=== PATIENT | female | born 1930 | race Caucasian/White ===

== ENCOUNTER 2017-07-06 18:27 | Inpatient (IN) | payer MEDICARE, MEDICAID ==
[~2017-07-06] VITALS: Ht 154.9 cm; Wt 41.5 kg
--- NOTE | ~2017-07-06 | PROC ---
[address] [address] PROCEDURE REPORT Name: ROBBIN FRNECH Room: [address] IN .R.#: [id number] Admission: 07/06/17 Attend Phys: Hunter Grimm MD Discharge: 07/11/17 Date of : 32 Report #: [id number] THIS REPORT FOR: //name// For additional GI report details, please see the Provation report in Perceptive 7 content. By: 1325Medical Records Staff MITRA /ANIA
[~2017-07-06 18:27] MED LIST: ATIVAN0.5 M1 PO; AUGMENTIN 875875 MG PO; CENTRUM COMPLE1 EACH PO; CIPRO250 M1 PO; CIPRO500 MG PO; COLACE100 MG PO; DARVOCET-N 1001 EACH PO; FOSAMAX 70 MG T70 M1 PO; FOSAMAX 70 MG T70 MG PO; HYDROCODONE-AP1 EAC6 PO; IBUPROFEN 600600 M1 PO; KEFLEX500 MG PO; MILK OF MA2400 MG/10 PO; MYRBETRIQ50 MG PO; NAMENDA XR28 MG PO; REMERON15 MG PO; SEROQUEL 25 MG25 M1 PO; SIMVASTATIN40 MG PO; SPIRIVA INH; TRAZODONE HCL50 MG PO; TWOCAL HN LIQU237 ML PO; ZOCOR20 MG PO; ZOLOFT25 MG PO
[2017-07-06 18:30] VITALS: BP 145/79
[2017-07-06] MEDS ORDERED: BISACODYL SUPP10 MG RECTAL (18:35)
[2017-07-06] MEDS ORDERED: ATIVAN0.5 MG PO (18:35)
[2017-07-06] MEDS ORDERED: SENEXON-S TABL1 EACH PO (18:36)
[2017-07-06] MEDS ORDERED: HYDROCODONE-AP1 EAC6 PO (18:36)
[2017-07-06] MEDS ORDERED: ZOLOFT25 MG PO (18:37)
[2017-07-06 18:57] LABS: ABSOLUTE EOSINOPHILS 0.2 thou/uL (0.0-0.7); ABSOLUTE LYMPHOCYTES 2.1 thou/uL (0.8-5.3); ABSOLUTE NEUTROPHILS 6.7 thou/uL (1.6-8.1); BASOPHILS 0.4 %; EOSINOPHILS 1.9 %; HEMATOCRIT 37.1 % (37.0-47.0); HEMOGLOBIN 11.8 gm/dL (12.0-15.0); LYMPHOCYTES 20.6 %; MCH 25.2 pg (26.0-34.0); MCHC 31.9 g/dL (28.0-37.0); MCV 78.9 fL (80.0-100.0); MONOCYTES 10.4 %; MPV 7.8 fl. (7.2-11.1); NUCLEATED RBCS 0 /100WBC; PLATELET COUNT* 400 thou/uL (150-400); POLYS 66.7 %; RDW-CV 17.6 % (10.5-14.5); WBC 10.1 thou/uL (4.0-11.0)
[2017-07-06 19:04] LABS: INFLUENZA A ANTIGEN None Detected (None Detect); INFLUENZA B ANTIGEN None Detected (None Detect)
[2017-07-06 19:05] LABS: ANION GAP 8 mmol/L (7-16); BUN 46 mg/dL (7-18); CALCIUM 9.4 mg/dL (8.5-10.1); CHLORIDE 109 mmol/L (98-107); CO2 30 mmol/L (21-32); GLUCOSE 91 mg/dL (70-99); POTASSIUM 3.7 mmol/L (3.5-5.1); SODIUM 147 mmol/L (136-145)
[2017-07-06 19:06] LABS: APTT 24.5 Seconds (25.0-31.3); INR 1.1; PROTIME 10.6 Seconds (9.20-11.50)
[2017-07-06 19:15] LABS: ALBUMIN 2.8 g/dL (3.4-5.0); ALKALINE PHOSPHATASE 119 U/L (46-116); LIPASE 392 U/L (73-393); MAGNESIUM 2.5 mg/dL (1.8-2.4); NT-PRO BRAIN NAT PEPTIDE 132 pg/mL (<300); SGOT 30 U/L (15-37); SGPT 30 U/L (30-65); TOTAL BILIRUBIN 0.3 mg/dL (<0.1-1.0); TOTAL PROTEIN 7.8 g/dL (6.4-8.2); TROPONIN-I LEVEL <0.06 ng/mL (<0.06)
[2017-07-06 20:47] VITALS: BP 121/75
[2017-07-06 23:32] VITALS: BP 121/61
[2017-07-07 04:45] LABS: HEMOGLOBIN 10.5 gm/dL (12.0-15.0); MCH 24.8 pg (26.0-34.0); MCHC 31.8 g/dL (28.0-37.0); MCV 77.8 fL (80.0-100.0); MPV 8.4 fl. (7.2-11.1); NUCLEATED RBCS 0 /100WBC; PLATELET COUNT* 341 thou/uL (150-400); RBC 4.25 mil/uL (4.20-5.00); RDW-CV 17.3 % (10.5-14.5); WBC 6.5 thou/uL (4.0-11.0)
[2017-07-07 05:00] LABS: CALCIUM 8.4 mg/dL (8.5-10.1); POTASSIUM 3.9 mmol/L (3.5-5.1)
[2017-07-07 06:59] LABS: ABSOLUTE LYMPHOCYTES 0.4 thou/uL (0.8-5.3); ABSOLUTE MONOCYTES 0.1 thou/uL (0.0-1.2)
[2017-07-07 07:00] LABS: ANISOCYTOSIS 1+; HYPOCHROMASIA 1+; PLATELET ESTIMATE ADEQUATE
[2017-07-07 10:17] VITALS: BP 153/91
--- NOTE | 2017-07-07 11:47 | EKG ---
[place] [address] ELECTROCARDIOGRAM REPORT Name: YUMIKOTOÑAROBBIN Room: [address]R.#: [id number] Admission: 07/06/17 Attend Phys: Hunter Grimm MD Discharge: Date of : 32 Report #: [id number] THIS REPORT FOR: //name// [facility] ED Test Date: 2017-07-06 Test Time: 19:26:05 Pat Name: ROBBIN FRENCH Department: Room: [facility] Gender: F Ferris Wheel Operator: BD : 1930 Requested By: Reinaldo Brown Order Number: [id number] MD: West Márquez Measurements Intervals [place] Rate: 85 P: 60 AR: 142 QRS: 8 QRSD: 96 T: 60 QT: 370 QTc: 440 Interpretive Statements Sinus rhythm Inferior infarct, old Baseline wander in lead(s) II,III,aVL,aVF,V1,V4,V5,V6 Compared to ECG 05/15/2016 14:11:28 Myocardial infarct finding now present Ventricular premature complex(es) no longer present Electronically Signed On 07-07-2017 11:47:26 MANAGER STATE by West Márquez [email or web address] <ELECTRONICALLY SIGNED> By: West Márquez MD, FACC 07/07/17 1147 25 25 West Márquez MD, FAC /EPI
[2017-07-07 16:45] VITALS: BP 138/43
[2017-07-07 19:30] VITALS: BP 132/55
[2017-07-08 04:39] LABS: ABSOLUTE LYMPHOCYTES 1.7 thou/uL (0.8-5.3); ABSOLUTE MONOCYTES 0.9 thou/uL (0.0-1.2); ABSOLUTE NEUTROPHILS 8.1 thou/uL (1.6-8.1); BASOPHILS 0.3 %; EOSINOPHILS 0.1 %; HEMATOCRIT 28.7 % (37.0-47.0); HEMOGLOBIN 9.3 gm/dL (12.0-15.0); LYMPHOCYTES 15.9 %; MCHC 32.5 g/dL (28.0-37.0); MCV 76.9 fL (80.0-100.0); MONOCYTES 8.7 %; MPV 8.2 fl. (7.2-11.1); NUCLEATED RBCS 0 /100WBC; PLATELET COUNT* 316 thou/uL (150-400); RBC 3.73 mil/uL (4.20-5.00); RDW-CV 16.9 % (10.5-14.5); WBC 10.7 thou/uL (4.0-11.0)
[2017-07-08 04:50] LABS: ALBUMIN 2.4 g/dL (3.4-5.0); CALCIUM 8.2 mg/dL (8.5-10.1); CREATININE 0.8 mg/dL (0.6-1.3); POTASSIUM 3.5 mmol/L (3.5-5.1); TOTAL BILIRUBIN 0.2 mg/dL (<0.1-1.0); TOTAL PROTEIN 6.1 g/dL (6.4-8.2)
[2017-07-08 08:00] VITALS: BP 138/86
[2017-07-08 16:10] VITALS: BP 126/60
[2017-07-08 19:30] VITALS: BP 126/66
[2017-07-09 04:24] LABS: ABSOLUTE BASOPHILS 0.1 thou/uL (0.0-0.2); ABSOLUTE EOSINOPHILS 0.1 thou/uL (0.0-0.7); ABSOLUTE MONOCYTES 0.9 thou/uL (0.0-1.2); BASOPHILS 0.8 %; EOSINOPHILS 0.9 %; HEMOGLOBIN 10.1 gm/dL (12.0-15.0); LYMPHOCYTES 25.4 %; MCH 24.9 pg (26.0-34.0); MCHC 33.8 g/dL (28.0-37.0); MCV 73.6 fL (80.0-100.0); MONOCYTES 11.3 %; MPV 7.9 fl. (7.2-11.1); NUCLEATED RBCS 0 /100WBC; PLATELET COUNT* 382 thou/uL (150-400); POLYS 61.6 %; RBC 4.08 mil/uL (4.20-5.00); RDW-CV 16.6 % (10.5-14.5); WBC 8.1 thou/uL (4.0-11.0)
[2017-07-09 04:32] LABS: ALBUMIN 2.4 g/dL (3.4-5.0); CALCIUM 8.3 mg/dL (8.5-10.1); CREATININE 0.8 mg/dL (0.6-1.3); POTASSIUM 3.1 mmol/L (3.5-5.1); TOTAL BILIRUBIN 0.3 mg/dL (<0.1-1.0); TOTAL PROTEIN 6.1 g/dL (6.4-8.2)
--- NOTE | 2017-07-09 10:39 | EKG ---
[place] [address] ELECTROCARDIOGRAM REPORT Name: RAORANDOLPHROBBIN Luis A Room: [address] ADM IN M.R.#: [id number] Admission: 07/06/17 Attend Phys: Hunter Grimm MD Discharge: Date of : 32 Report #: [id number] THIS REPORT FOR: //name// [facility] Test Date: 2017-07-09 Test Time: 08:06:58 Pat Name: ROBBIN FRENCH Department: Room: [address] Gender: F Guest Experience Manager: BLANCA : 1930 Requested By: Deandre Taylor Order Number: [id number] MD: Dante Liu Measurements Intervals [place] Rate: 72 P: 51 OR: 144 QRS: 20 QRSD: 126 T: 44 QT: 411 QTc: 450 Interpretive Statements Sinus rhythm Minimal ST elevation, anterior leads Baseline wander in lead(s) I Compared to ECG 07/06/2017 19:26:05 no change Electronically Signed On 07-09-2017 10:39:35 STICKER OPERATOR by Dante Liu [email or web address] <ELECTRONICALLY SIGNED> By: Dante Liu MD, [facility] 07/09/17 [id number] [id number] Dante Liu MD, [facility] /EPI
[2017-07-09 10:54] VITALS: BP 155/77
[2017-07-09 16:00] VITALS: BP 137/71
[2017-07-09 19:30] VITALS: BP 149/107
[2017-07-10 03:39] LABS: URINE BILIRUBIN NEGATIVE (Negative); URINE BLOOD 1+ (Negative); URINE CLARITY CLEAR; URINE COLOR YELLOW; URINE GLUCOSE-RANDOM NEGATIVE (Negative); URINE KETONES 1+ (Negative); URINE LEUKOCYTES-REFLEX 1+ (Negative); URINE NITRITE-REFLEX NEGATIVE (Negative); URINE PROTEIN NEGATIVE (Negative); URINE SPECIFIC GRAVITY 1.015 (1.005-1.030); URINE UROBILINOGEN 0.2 E.U./dl (0.2-1.0)
[2017-07-10 04:12] LABS: HEMATOCRIT 35.1 % (37.0-47.0); HEMOGLOBIN 10.9 gm/dL (12.0-15.0); MCH 24.6 pg (26.0-34.0); MCHC 31.2 g/dL (28.0-37.0); MPV 8.2 fl. (7.2-11.1); RBC 4.44 mil/uL (4.20-5.00); RDW-CV 17.2 % (10.5-14.5); WBC 7.6 thou/uL (4.0-11.0)
[2017-07-10 04:17] LABS: CASTS None Seen /LPF (None Seen); MUCUS 0-3 Light strn/LPF (None Seen); SQUAMOUS 4-10 Moderate /LPF (0-3)
[2017-07-10 04:18] LABS: CRYSTALS None Seen /LPF (None Seen); URINE RBC 3-10 Few /HPF (0-2); URINE WBC-REFLEX 6-15 Few /HPF (0-5)
[2017-07-10 04:22] LABS: ALBUMIN 2.4 g/dL (3.4-5.0); CALCIUM 8.6 mg/dL (8.5-10.1); CREATININE 0.7 mg/dL (0.6-1.3); MAGNESIUM 2.1 mg/dL (1.8-2.4); POTASSIUM 3.5 mmol/L (3.5-5.1); TOTAL BILIRUBIN 0.3 mg/dL (<0.1-1.0); TOTAL PROTEIN 6.4 g/dL (6.4-8.2)
[2017-07-10 09:17] VITALS: BP 135/68
[2017-07-10 14:31] VITALS: BP 109/53
[2017-07-11 00:24] VITALS: BP 118/64
[2017-07-11 07:25] VITALS: BP 133/69
[2017-07-11 07:30] VITALS: BP 151/69
[2017-07-11] MEDS ORDERED: NYSTATIN100000 UNI SW&SWALLOW (12:02)
[2017-07-11] MEDS ORDERED: CIPRO250 M1 PO (12:06)
[2017-07-11] MEDS ORDERED: ATIVAN0.5 MG PO (12:06)
[2017-07-11] MEDS ORDERED: HYDROCODONE-AP1 EAC6 PO (12:06)
[2017-07-11 12:28] VITALS: BP 180/56
[2017-07-11 12:54] VITALS: BP 180/56
[2017-07-11 14:53] VITALS: BP 142/68
--- NOTE | 2017-07-18 16:13 | CON ---
[address] [address] CONSULTATION Name: ROBBIN FRENCH Room: [address]#: [id number] Admission: 07/06/17 Attend Phys: Hunter Grimm MD Discharge: 07/11/17 Date of : 32 Report #: [id number] THIS REPORT FOR: //name// CC: Hunter Grimm MD [facility] DATE OF SERVICE: 07/07/2017 REASON FOR CONSULT: Dysphagia and odynophagia. REQUESTING PHYSICIAN: Hunter Grimm MD HISTORY OF PRESENT ILLNESS: This is an 87-year-old female who lives in a jail facility. The patient's daughter had realized that she has been losing 5 pounds every week due to inability to eat. The patient apparently has been complaining of pain during swallowing. The patient's daughter reports that her mom has received 2 rounds of antibiotics for a UTI and upper respiratory infection. PAST MEDICAL HISTORY: Significant for history of COPD, dementia, closed pelvic fracture, syncopal episode, UTI, chronic constipation, dysphagia, depression, dyslipidemia, insomnia. ALLERGIES: SIGNIFICANT TO CODEINE, IODINE AND CALAMINE. MEDICATIONS: Please refer to hospital MAR. SOCIAL HISTORY: The patient denies tobacco or alcohol use. She is demented and lives in a jail. FAMILY HISTORY: Noncontributory. PHYSICAL EXAMINATION: VITAL SIGNS: Reveals blood pressure of 153/91, respirations 20, pulse 78, temperature 97.9. LUNGS: Coarse breath sounds bilaterally. CARDIOVASCULAR: Regular rate. ABDOMEN: Soft, nontender, nondistended. NEUROLOGIC: The patient is disoriented and unable to communicate due to the same. LABORATORY DATA: Reveal sodium of 148, potassium is 3.9, BUN is 44, creatinine 1.0, glucose 175. AST is 30, ALT 30, alkaline phosphatase 119, magnesium is 2.5, calcium 8.4, total bili is 0.3. INR is 1.1 with WBC of 6.5, hemoglobin [facility] [address] [place] [address] CONSULTATION Name: GILLIANROBBIN Luis A Room: [address] IN [facility].#: [id number] Admission: 07/06/17 Attend Phys: Hunter Grimm MD Discharge: 07/11/17 Date of : 32 Report #: [id number] 10.5 and MCV of 77. ASSESSMENT AND PLAN: The patient with history of anorexia and dysphagia who has had history of upper endoscopy with stretching of her esophagus many years ago. There were some whitish patches noted in the back of the throat, which may hint Ana Luisa. She is already on nystatin. I will go ahead and give her Diflucan as nystatin would not be effective for esophageal candidiasis. I will schedule her for upper endoscopy on Sunday to rule out esophageal lesion, severe esophagitis, benign esophageal strictures, Ana Luisa esophagitis. We will make further recommendation once endoscopy is complete. Meanwhile, she should be on antifungal therapy. <ELECTRONICALLY SIGNED> By: Deandre Taylor MD 07/18/17 1613 1417 0106Deandre Taylor MD /nt
== END 2017-07-11 14:45 | DRG 867 ==
LOC: M.ERS 18:27 → M.3W 19:14 → M.TBA-ER 19:14 → M.3W 20:19
PROVIDERS: Family Medicine; Internal Medicine; ADMIT Internal Medicine
DX: B37.89 Other sites of candidiasis (principal); G93.40 Encephalopathy, unspecified; E44.0 Moderate protein-calorie malnutrition; J44.1 Chronic obstructive pulmonary disease with (acute) exacerbation; N39.0 Urinary tract infection, site not specified; E87.0 Hyperosmolality and hypernatremia; J02.8 Acute pharyngitis due to other specified organisms; E86.0 Dehydration; M81.0 Age-related osteoporosis without current pathological fracture; M19.90 Unspecified osteoarthritis, unspecified site; B34.9 Viral infection, unspecified; R06.00 Dyspnea, unspecified; R13.10 Dysphagia, unspecified; F03.90 Unspecified dementia, unspecified severity, without behavioral disturbance, psychotic disturbance, mood disturbance, and anxiety; K20.9 Esophagitis, unspecified; R62.7 Adult failure to thrive; Z79.899 Other long term (current) drug therapy; Z88.8 Allergy status to other drugs, medicaments and biological substances; Z88.6 Allergy status to analgesic agent; Z91.041 Radiographic dye allergy status

== ENCOUNTER 2018-05-23 20:35 | Inpatient (IN) | payer MEDICARE, MEDICAID ==
[~2018-05-23] VITALS: Ht 160 cm; Wt 42.2 kg
[~2018-05-23 20:35] MED LIST changes: +ATIVAN0.5 MG PO; +BISACODYL SUPP10 MG RECTAL; +NYSTATIN100000 UNI SW&SWALLOW; +SENEXON-S TABL1 EACH PO
[2018-05-23 20:38] VITALS: BP 143/81
[2018-05-23 21:24] LABS: ABSOLUTE EOSINOPHILS 0.1 thou/uL (0.0-0.7); ABSOLUTE LYMPHOCYTES 2.1 thou/uL (0.8-5.3); ABSOLUTE NEUTROPHILS 12.5 thou/uL (1.6-8.1); BASOPHILS 0.2 %; EOSINOPHILS 0.7 %; HEMATOCRIT 33.1 % (37.0-47.0); HEMOGLOBIN 10.2 gm/dL (12.0-15.0); LYMPHOCYTES 13.4 %; MCH 22.8 pg (26.0-34.0); MCHC 30.9 g/dL (28.0-37.0); MCV 73.9 fL (80.0-100.0); MONOCYTES 6.3 %; MPV 7.8 fl. (7.2-11.1); NUCLEATED RBCS 0 /100WBC; PLATELET COUNT* 312 thou/uL (150-400); POLYS 79.4 %; RBC 4.48 mil/uL (4.20-5.00); RDW-CV 18.2 % (10.5-14.5); WBC 15.7 thou/uL (4.0-11.0)
[2018-05-23 21:34] LABS: APTT 25.1 Seconds (25.0-31.3); INR 1.2
[2018-05-23 21:39] LABS: ALBUMIN 2.1 g/dL (3.4-5.0); ALKALINE PHOSPHATASE 132 U/L (46-116); POTASSIUM 3.6 mmol/L (3.5-5.1); SGOT 18 U/L (15-37); SGPT 15 U/L (30-65); SODIUM 149 mmol/L (136-145); TOTAL BILIRUBIN 0.2 mg/dL (<0.1-1.0); TOTAL PROTEIN 6.8 g/dL (6.4-8.2)
[2018-05-23 21:45] LABS: ANION GAP 8 mmol/L (7-16); BUN 33 mg/dL (7-18); CALCIUM 8.9 mg/dL (8.5-10.1); CHLORIDE 114 mmol/L (98-107); CO2 27 mmol/L (21-32); GLUCOSE 153 mg/dL (70-99)
[2018-05-23 21:49] LABS: PLATELET ESTIMATE ADEQUATE
[2018-05-23 21:50] LABS: ANISOCYTOSIS 1+; HYPOCHROMASIA 1+; MICROCYTES 1+
[2018-05-23 21:52] LABS: TROPONIN-I LEVEL <0.06 ng/mL (<0.06)
[2018-05-23 22:36] VITALS: BP 110/61
[2018-05-23 23:01] VITALS: BP 127/61
[2018-05-23] MEDS ORDERED: DEPAKOTE 250MG250 M1 PO (23:39)
[2018-05-23] MEDS ORDERED: TYLENOL325 MG PO (23:40)
[2018-05-23] MEDS ORDERED: MIRTAZAPINE7.5 MG PO (23:40)
[2018-05-24 04:00] VITALS: BP 143/74
[2018-05-24 08:45] VITALS: BP 138/69
--- NOTE | 2018-05-24 11:26 | EKG ---
[place] [address] ELECTROCARDIOGRAM REPORT Name: ROBBIN FRENCH Luis A Room: [address] ADM [place] .R.#: [id number] Admission: 05/23/18 Attend Phys: Michelet Miranda MD Discharge: Date of : 32 Report #: [id number] THIS REPORT FOR: //name// [facility] ED Test Date: 2018-05-23 Test Time: 21:02:44 Pat Name: ROBBIN FRENCH Department: Room: [facility] Gender: F Component Engineer: Sterling REED : 1930 Requested By: Liliana Adler Order Number: [id number] MD: Dante Liu Measurements Intervals [place] Rate: 103 P: 50 IN: 136 QRS: -5 QRSD: 98 T: 25 QT: 347 QTc: 454 Interpretive Statements Sinus tachycardia consider Inferior infarct, old Probable anteroseptal infarct, old Compared to ECG 07/09/2017 08:06:58 Myocardial infarct finding now present Sinus rhythm no longer present Electronically Signed On 05-24-2018 11:26:02 SHIPPER/RECEIVER by Dante Liu [email or web address] <ELECTRONICALLY SIGNED> By: Dante Liu MD, FAC 05/24/18 1126 01 01 Dante Liu MD, [facility] /EPI
[2018-05-24 11:46] VITALS: BP 138/72
[2018-05-24 14:14] LABS: URINE BILIRUBIN NEGATIVE (Negative); URINE BLOOD 2+ (Negative); URINE CLARITY CLEAR; URINE COLOR YELLOW; URINE GLUCOSE-RANDOM NEGATIVE (Negative); URINE KETONES NEGATIVE (Negative); URINE LEUKOCYTES-REFLEX 1+ (Negative); URINE NITRITE-REFLEX NEGATIVE (Negative); URINE PROTEIN TRACE (Negative); URINE SPECIFIC GRAVITY 1.025 (1.005-1.030); URINE UROBILINOGEN 0.2 E.U./dl (0.2-1.0)
[2018-05-24 14:21] LABS: SQUAMOUS NONE SEEN /LPF (0-3)
[2018-05-24 14:22] LABS: BACTERIA-REFLEX 1-9 Few /HPF (None Seen); CASTS None Seen /LPF (None Seen); CRYSTALS None Seen /LPF (None Seen); URINE RBC 0-2 Rare /HPF (0-2); URINE WBC-REFLEX 6-15 Few /HPF (0-5)
[2018-05-24 15:39] VITALS: BP 138/51
[2018-05-24 19:45] VITALS: BP 132/72
[2018-05-25] VITALS: BP 132/57
[2018-05-25 04:00] VITALS: BP 124/59
[2018-05-25 04:59] LABS: HEMOGLOBIN 9.2 gm/dL (12.0-15.0); MCH 24.5 pg (26.0-34.0); MCHC 31.9 g/dL (28.0-37.0); MCV 76.8 fL (80.0-100.0); MPV 8.2 fl. (7.2-11.1); RBC 3.77 mil/uL (4.20-5.00); RDW-CV 18.7 % (10.5-14.5); WBC 9.8 thou/uL (4.0-11.0)
[2018-05-25 05:34] LABS: CALCIUM 8.1 mg/dL (8.5-10.1); CREATININE 0.9 mg/dL (0.6-1.3); POTASSIUM 3.6 mmol/L (3.5-5.1)
[2018-05-25 08:40] VITALS: BP 146/68
[2018-05-25 12:32] VITALS: BP 108/58
[2018-05-25 16:10] VITALS: BP 136/110
[2018-05-25 19:30] VITALS: BP 107/60
[2018-05-26] VITALS (7 sets, daily range): BP systolic 105–133; BP diastolic 34–74
[2018-05-26 05:22] LABS: HEMATOCRIT 29.9 % (37.0-47.0); HEMOGLOBIN 9.4 gm/dL (12.0-15.0); MCH 23.8 pg (26.0-34.0); MCHC 31.4 g/dL (28.0-37.0); MCV 75.7 fL (80.0-100.0); MPV 8.2 fl. (7.2-11.1); NUCLEATED RBCS 0 /100WBC; PLATELET COUNT* 256 thou/uL (150-400); RBC 3.95 mil/uL (4.20-5.00); RDW-CV 18.4 % (10.5-14.5); WBC 10.3 thou/uL (4.0-11.0)
[2018-05-26 05:56] LABS: CALCIUM 8.5 mg/dL (8.5-10.1); CREATININE 0.8 mg/dL (0.6-1.3); POTASSIUM 3.1 mmol/L (3.5-5.1)
[2018-05-26 08:22] LABS: ABSOLUTE BASOPHILS 0.1 thou/uL (0.0-0.2); ABSOLUTE LYMPHOCYTES 2.5 thou/uL (0.8-5.3); ABSOLUTE MONOCYTES 0.7 thou/uL (0.0-1.2)
[2018-05-26 08:25] LABS: BURR CELLS 3+
[2018-05-26 08:26] LABS: ANISOCYTOSIS 1+; OVALOCYTES Occasional; PLATELET ESTIMATE ADEQUATE
[2018-05-26 08:27] LABS: MICROCYTES 1+
[2018-05-27 04:00] VITALS: BP 127/66
[2018-05-27 04:51] LABS: HEMOGLOBIN 10.5 gm/dL (12.0-15.0); MCH 23.4 pg (26.0-34.0); MCHC 31.9 g/dL (28.0-37.0); MCV 73.5 fL (80.0-100.0); MPV 8.2 fl. (7.2-11.1); RBC 4.5 mil/uL (4.20-5.00); RDW-CV 18.5 % (10.5-14.5); WBC 10.6 thou/uL (4.0-11.0)
[2018-05-27 05:30] LABS: CALCIUM 8.9 mg/dL (8.5-10.1); POTASSIUM 3.4 mmol/L (3.5-5.1)
[2018-05-27 09:50] VITALS: BP 106/59
[2018-05-27 12:00] VITALS: BP 124/65
[2018-05-27 16:00] VITALS: BP 124/32
[2018-05-27 20:00] VITALS: BP 111/60
[2018-05-28] VITALS: BP 116/60
[2018-05-28 04:00] VITALS: BP 133/62
[2018-05-28 05:05] LABS: CALCIUM 9.3 mg/dL (8.5-10.1); CREATININE 1.3 mg/dL (0.6-1.3); POTASSIUM 3.7 mmol/L (3.5-5.1)
[2018-05-28 08:00] VITALS: BP 133/66
[2018-05-28 11:43] VITALS: BP 136/55
[2018-05-28] MEDS ORDERED: ACCUNEB SO1.25 MG/1 INH (13:30)
[2018-05-28] MEDS ORDERED: LEVAQUIN 500 M500 M2 PO (13:36)
[2018-05-28] MEDS ORDERED: DIFLUCAN200 MG PO (13:44)
[2018-05-28 13:47] VITALS: BP 136/55
== END 2018-05-28 15:26 | disposition hospice, home (50) | DRG 871 ==
LOC: M.ERS 20:35 → M.TBA-ER 22:06 → M.2W 22:06
PROVIDERS: Emergency Medicine; Family Medicine; Nurse Practitioner Family; ADMIT Internal Medicine
DX: A41.9 Sepsis, unspecified organism (principal); J15.6 Pneumonia due to other Gram-negative bacteria; J44.0 Chronic obstructive pulmonary disease with (acute) lower respiratory infection; J44.1 Chronic obstructive pulmonary disease with (acute) exacerbation; B37.0 Candidal stomatitis; I50.9 Heart failure, unspecified; E87.6 Hypokalemia; M81.0 Age-related osteoporosis without current pathological fracture; E78.5 Hyperlipidemia, unspecified; M19.90 Unspecified osteoarthritis, unspecified site; I83.892 Varicose veins of left lower extremity with other complications; Z66 Do not resuscitate; D50.9 Iron deficiency anemia, unspecified; F03.90 Unspecified dementia, unspecified severity, without behavioral disturbance, psychotic disturbance, mood disturbance, and anxiety; F39 Unspecified mood [affective] disorder; Z79.2 Long term (current) use of antibiotics; Z79.899 Other long term (current) drug therapy; Z88.6 Allergy status to analgesic agent; Z91.041 Radiographic dye allergy status; Z90.710 Acquired absence of both cervix and uterus